=== PATIENT | female | born 1965 | race Hispanic/Latino ===

== ENCOUNTER → 2018-05-03 | Day surgery (SDC) | payer BC ==
[~2018-05-03] MED LIST: FENTANYL CITRATE/PF 100MCG/2 ML INJ ONE; GLIPIZIDE5 MG PO; GLUCAGON FOR INJ 1 MG VIAL ONE; HYOSCYAMINE SULFATE 0.5 MG/ML AMP ONE; INSULIN REGULAR, HUMAN 100 UNIT/1 ML 3ML VIAL ONE; INVOKANA PO; LIDOCAINE HCL 2% LOCAL INJ 5 ML SDV VIAL INJ ONE; LOVASTATIN10 MG PO; METFORMIN HCL500 MG PO; MIDAZOLAM HCL 2 MG/2 ML VIAL ONE; PHENYLEPHRINE 0.1 MG/ML SYR ONE; PIOGLITAZONE30 MG PO; PROPOFOL IV EMULSION 10 MG/ML 50 ML VIAL ONE; TOUJEO SC; [UNRECOGNIZED DRUG - OTHER] PO
[2018-05-03 12:55] LABS: WBC,FECAL (FECAL LACTOFERRIN) NEGATIVE (NEGATIVE)
[2018-05-03 13:45] VITALS: BP 107/82
--- NOTE | 2018-05-03 14:52 | Operative Report ---
DATE OF PROCEDURE: May 03, 2018 REFERRING PHYSICIAN: Dr. Ronna Geronimo PROCEDURE PERFORMED: Colonoscopy with polypectomy. INDICATIONS FOR COLONOSCOPY: Colorectal cancer screening. History of bright red blood per rectum. MEDICATION: Patient was done under MAC. Please see anesthesiologist's note. PROCEDURE: With the patient in the left lateral decubitus position, the flexible fiberoptic Olympus colonoscope was inserted into the rectum with ease and advanced all the way to the cecum. Moderate to large amount of retained stools was noted throughout the colon. Ileocecal valve was intubated, and the scope was advanced into the terminal ileum. Biopsies were obtained. The scope was then withdrawn back into the colon and it was withdrawn slowly, and whatever was visualized of the mucosa overlying the ascending appeared to be within normal limits. Two polyps were hot biopsied from the transverse colon. In the descending, whatever was visualized of the mucosa appeared to be within normal limits. One polyp was snared and two polyps were hot biopsied from the sigmoid colon. The rectum appeared to be within normal limits. The scope was then retroflexed into the distal rectum, and small internal hemorrhoids were noted, none of which was actively bleeding. The scope was then straightened out. It was subsequently withdrawn. Patient tolerated the procedure well. IMPRESSION 1. Suboptimal to poor prep. 2. Transverse colon polyps times 2, hot biopsied. 3. Sigmoid colon polyps times 3, one snared and two hot biopsied. 4. Internal hemorrhoids, none actively bleeding. PLAN: Follow up histology. Patient will need a repeat colonoscopy after a better prep. Job#: [id number] cc:RONNA GERONIMO M.D.
[2018-05-04 14:29] LABS: C DIFFICILE TOXIN A&B AMP PROB NEGATIVE (NEGATIVE)
== END | disposition home or self-care (01) ==
LOC: ENDO 11:39
PROVIDERS: ATTEND Internal Medicine Gastroenterology
DX: K92.1 Melena (principal); K63.5 Polyp of colon; K64.8 Other hemorrhoids; E11.9 Type 2 diabetes mellitus without complications; Z01.810 Encounter for preprocedural cardiovascular examination; Z79.84 Long term (current) use of oral hypoglycemic drugs; Z68.30 Body mass index [BMI] 30.0-30.9, adult
CPT/HCPCS: 36415; 45384; 45385; 82948; 83630; 83993; 87045; 87177; 87328; 87493; 93005; J1610; J1980; J2001; J2250; 45380

== ENCOUNTER → 2018-05-31 | Day surgery (SDC) | payer BC ==
[~2018-05-31] MED LIST changes: -GLUCAGON FOR INJ 1 MG VIAL ONE; -HYOSCYAMINE SULFATE 0.5 MG/ML AMP ONE; +HYOSCYAMINE SULFATE 0.5 MG/ML INJ ONE; -INSULIN REGULAR, HUMAN 100 UNIT/1 ML 3ML VIAL ONE; -LIDOCAINE HCL 2% LOCAL INJ 5 ML SDV VIAL INJ ONE; +ONDANSETRON HCL INJ 2 MG/ML VIAL ONE; -PHENYLEPHRINE 0.1 MG/ML SYR ONE; +TOUJEO SQ
[2018-05-31 14:20] VITALS: BP 103/67
[2018-05-31 14:34] LABS: WBC,FECAL (FECAL LACTOFERRIN) NEGATIVE (NEGATIVE)
--- NOTE | 2018-05-31 18:01 | Operative Report ---
DATE OF PROCEDURE: May 31, 2018 REFERRING PHYSICIAN: Dr. Ronna Geronimo PROCEDURE PERFORMED: Colonoscopy and polypectomy with biopsies. INDICATIONS FOR PROCEDURE: Poor prep on previous colonoscopy. History of colon polyps. MEDICATION: Patient was done under MAC. Please see anesthesiologist's note. PROCEDURE: With the patient in the left lateral decubitus position, the flexible fiberoptic Olympus colonoscope was inserted into the rectum with ease and advanced all the way to the cecum. Mucosa overlying the cecum appeared to be within normal limits. One polyp was snared from the ascending colon. One polyp was hot biopsied from the transverse colon. One polyp was snared from the descending colon. One polyp was hot biopsied from the sigmoid colon. The left colon revealed some patchy, mild, inflammatory changes, and random biopsies were obtained. The scope was then retroflexed into the distal rectum, and small internal hemorrhoids were noted, none of which was actively bleeding. The scope was then straightened out. It was subsequently withdrawn after securing an adequate stool specimen that was sent for the appropriate stool studies. Patient tolerated the procedure well. IMPRESSION 1. Ascending colon polyp, snared. 2. Transverse colon polyp, hot biopsied. 3. Descending colon polyp, snared. 4. Sigmoid colon polyp, hot biopsied. 5. Patchy, mild, left-sided colitis, random biopsies obtained. 6. Internal hemorrhoids, none actively bleeding. PLAN: Follow up histology. Follow up stool studies. Initiate Bentyl 10 mg 1 p.o. t.i.d. and VSL #3 one p.o. daily. The patient will need a followup colonoscopy in 3 years. Job#: [id number] cc:RONNA GERONIMO M.D.
[2018-06-01 14:56] LABS: C DIFFICILE TOXIN A&B AMP PROB NEGATIVE (NEGATIVE)
== END | disposition home or self-care (01) ==
LOC: ENDO 08:46
PROVIDERS: ATTEND Internal Medicine Gastroenterology
DX: Z09 Encounter for follow-up examination after completed treatment for conditions other than malignant neoplasm (principal); K63.5 Polyp of colon; K51.50 Left sided colitis without complications; K64.8 Other hemorrhoids; E11.9 Type 2 diabetes mellitus without complications; Z91.19 Patient's noncompliance with other medical treatment and regimen; Z01.810 Encounter for preprocedural cardiovascular examination; Z79.84 Long term (current) use of oral hypoglycemic drugs; Z68.31 Body mass index [BMI] 31.0-31.9, adult
CPT/HCPCS: 36415; 45380; 45384; 45385; 82948; 83630; 83993; 87045; 87177; 87328; 87493; 93005; J1980; J2250; J2405

== ENCOUNTER 2018-07-28 16:27 | Emergency (ER) | payer BC ==
[~2018-07-28] VITALS: Ht 157.5 cm; Wt 70.3 kg
[~2018-07-28 16:27] MED LIST changes: -FENTANYL CITRATE/PF 100MCG/2 ML INJ ONE; -HYOSCYAMINE SULFATE 0.5 MG/ML INJ ONE; -MIDAZOLAM HCL 2 MG/2 ML VIAL ONE; -ONDANSETRON HCL INJ 2 MG/ML VIAL ONE; -PROPOFOL IV EMULSION 10 MG/ML 50 ML VIAL ONE
[2018-07-28] MEDS ORDERED: SODIUM CHLORIDE 0.9% 1000ML 1,000 ML IV STA (17:22)
[2018-07-28] MEDS ORDERED: ONDANSETRON HCL INJ 2 MG/ML VIAL IV ONE (17:45)
[2018-07-28 18:49] LABS: CLARITY,URINE CLEAR (CLEAR); COLOR,URINE YELLOW (YELLOW); LEUKOCYTE ESTERASE ,URINE NEGATIVE (NEGATIVE); NITRITE,URINE NEGATIVE (NEGATIVE); PROTEIN,URINE DIPSTICK NEGATIVE (NEGATIVE)
[2018-07-28 18:50] LABS: BILIRUBIN,URINE NEGATIVE (NEGATIVE); KETONES,URINE NEGATIVE (NEGATIVE); URINE UROBILINOGEN 0.2 mg/dL (0.2 - 1)
[2018-07-28 19:02] LABS: BACTERIA,URINE FEW /HPF; CALCIUM OXALATE CRYSTALS,UR FEW (FEW); EPITHELIAL CELLS,URINE RARE /LPF
[2018-07-28 19:38] LABS: BASOPHILS # (AUTO) 0.1 (0.0-0.1); BASOPHILS % 0.5 % (0.0-1.0); EOSINOPHILS # (AUTO) 0.2 (0.0-0.4); EOSINOPHILS % 1.7 % (0.0-6.0); HEMATOCRIT 43.9 % (34.2-44.1); HEMOGLOBIN 14.3 g/dL (12.0-16.0); LYMPHOCYTES # (AUTO) 4.2 (1.0-3.2); LYMPHOCYTES % 30.4 % (18.0-39.1); MEAN CORPUSCULAR HEMOGLOBIN 28.7 pg (28-32); MEAN CORPUSCULAR HGB CONC 32.6 g/dL (31-35); MONOCYTES # (AUTO) 1.1 (0.2-0.8); MONOCYTES % 7.9 % (4.4-11.3); NEUTROPHILS # (AUTO) 8.2 (2.1-6.9); PLATELET COUNT 298 x10e3/uL (140-360); RED BLOOD COUNT 4.99 x10e6/uL (3.6-5.1); RED CELL DISTRIBUTION WIDTH 12.8 % (11.7-14.4)
[2018-07-28 20:58] LABS: ALANINE AMINOTRANSFERASE 33 IU/L (0-55); ALBUMIN 4.5 g/dL (3.5-5.0); ALBUMIN/GLOBULIN RATIO 1.1 (0.8-2.0); ALKALINE PHOSPHATASE 91 IU/L (40-150); ANION GAP 16.8 mmol/L (8-16); BLOOD UREA NITROGEN 11 mg/dL (7-26); BUN/CREATININE RATIO 11 (6-25); CALCIUM 10.7 mg/dL (8.4-10.2); CARBON DIOXIDE 24 mmol/L (22-29); CHLORIDE 101 mmol/L (98-107); CREATININE, SERUM 0.96 mg/dL (0.57-1.11); EST GLOMERULAR FILTRATION RATE > 60 ML/MIN (60-); GLUCOSE 166 mg/dL (74-118); LIPASE 26 U/L (8-78); POTASSIUM 3.8 mmol/L (3.5-5.1); SODIUM 138 mmol/L (136-145)
--- NOTE | 2018-07-28 22:26 | Diagnostic Imaging Report ---
EXAM: CT ABDOMEN AND PELVIS with IV CONTRAST DATE: 07/28/2018 5:22 PM Time stamp on Exam: 2206 hours INDICATION: Left upper and lower abdominal pain COMPARISON: None TECHNIQUE: The abdomen and pelvis were scanned using a multidetector helical scanner. Coronal and sagittal reformations were obtained. Dose modulation, iterative reconstruction, and/or weight based adjustment of the mA/kV was utilized to reduce the radiation dose to as low as reasonably achievable. Routine protocol performed. IV Contrast: 100 cc Isovue-370 Oral Contrast: Gastrografin FINDINGS: LOWER THORAX: No consolidations LIVER: No masses BILIARY: The gallbladder is unremarkable. No ductal dilation. SPLEEN: No masses PANCREAS: No masses ADRENALS: No nodules KIDNEYS: Symmetric perfusion. No enhancing masses. No hydronephrosis. GI TRACT: No distention, wall thickening or evidence of obstruction. VESSELS: Unremarkable PERITONEUM/RETROPERITONEUM: No free air or fluid LYMPH NODES: No lymphadenopathy REPRODUCTIVE ORGANS: The uterus has been removed. BLADDER: Unremarkable SOFT TISSUES: Unremarkable BONES: No suspicious bone lesions. IMPRESSION: Normal CT of the abdomen and pelvis. Signed by: Dr. Lu Quevedo M.D. on 07/28/2018 10:23 PM
[2018-07-29] MEDS ORDERED: SODIUM CHLORIDE 0.9% 50ML 50 ML ONE (04:32)
[2018-07-29] MEDS ORDERED: IOPAMIDOL 370 MG/ML 200 ML INFUS..BTL INJ ONE (04:33)
== END 2018-07-28 23:20 | disposition home or self-care (01) ==
LOC: ER 16:27
DX: R10.12 Left upper quadrant pain (principal); R11.2 Nausea with vomiting, unspecified; R19.7 Diarrhea, unspecified; E11.9 Type 2 diabetes mellitus without complications; E78.5 Hyperlipidemia, unspecified; Z87.19 Personal history of other diseases of the digestive system
CPT/HCPCS: 36415; 74177; 80053; 81001; 83605; 83690; 85025; 99284; J2405; J7030

== ENCOUNTER 2019-02-14 21:05 | Emergency (ER) | payer BC ==
[~2019-02-14] VITALS: Ht 157.5 cm; Wt 70.3 kg
--- OUTSIDE RECORDS SUMMARY | 2019-02-14 21:09 | XMS REPORT ---
[facility] Address Unknown Phone Unavailable Care Team Providers Care Needle Grader Name Role Phone Jackie TRACEY Unavailable Unavailable Problems This patient has no known problems. Allergies, Adverse Reactions, Alerts This patient has no known allergies or adverse reactions. Medications This patient has no known medications. Results Test Description Test Time Test Comments Text Results Atomic Results Result Comments CT ABDOMEN/PELVIS W 2018-07-28 22:16:00 [place] [address] Patient Name: TNOO ROSARIO MR #: [id number] : 1965 Age/Sex: 52/F Req #: [id number] Adm Physician: Ordered by: LANCE HARO LIVESTOCK FEEDER Report #: [id number] Location: ER Room/Bed: Procedure: [id number] CT/CT ABDOMEN/PELVIS W Exam Date: Exam Time: REPORT STATUS: Signed EXAM: CT ABDOMEN AND PELVIS with IV CONTRAST DATE: 07/28/2018 5:22 PM Time stamp on Exam: 2206 hours INDICATION: Left upper and lower abdominal pain COMPARISON: None TECHNIQUE: The abdomen and pelvis were scanned using a multidetector helical scanner. Coronal and sagittal reformations were obtained. Dose modulation, iterative reconstruction, and/or weight based adjustment of the mA/kV was utilized to reduce the radiation dose to as low as reasonably achievable. Routine protocol performed. IV Contrast: 100 cc Isovue-370 Oral Contrast: Gastrografin FINDINGS: LOWER THORAX: No consolidations LIVER: No masses BILIARY: The gallbladder is unremarkable. No ductal dilation. SPLEEN: No masses PANCREAS: No masses ADRENALS: No nodules KIDNEYS: Symmetric perfusion. No enhancing masses. No hydronephrosis. GI TRACT: No distention, wall thickening or evidence of obstruction. VESSELS: Unremarkable PERITONEUM/RETROPERITONEUM: No free air or fluid LYMPH NODES: No lymphadenopathy REPRODUCTIVE ORGANS: Th e uterus has been removed. BLADDER: Unremarkable SOFT TISSUES: Unremarkable BONES: No suspicious bone lesions. IMPRESSION: Normal CT of the abdomen and pelvis. Signed by: Dr. Zeyad Quevedo M.D. on 07/28/2018 10:23 PM Dictated By: ZEYAD QUEVEDO MD 22 Transcribed By: EMRLINE on 07/28/182222 COPY TO: LANCE HARO NP
[2019-02-14 21:38] LABS: BASOPHILS # (AUTO) 0.1 (0.0-0.1); BASOPHILS % 0.6 % (0.0-1.0); EOSINOPHILS # (AUTO) 0.2 (0.0-0.4); EOSINOPHILS % 1.5 % (0.0-6.0); HEMATOCRIT 39.5 % (34.2-44.1); HEMOGLOBIN 12.9 g/dL (12.0-16.0); LYMPHOCYTES % 31.7 % (18.0-39.1); MEAN CORPUSCULAR HEMOGLOBIN 28.7 pg (28-32); MEAN CORPUSCULAR HGB CONC 32.7 g/dL (31-35); MONOCYTES # (AUTO) 0.9 (0.2-0.8); MONOCYTES % 7.3 % (4.4-11.3); NEUTROPHILS # (AUTO) 7.4 (2.1-6.9); NEUTROPHILS % 58.6 % (38.7-80.0); PLATELET COUNT 303 x10e3/uL (140-360); RED BLOOD COUNT 4.49 x10e6/uL (3.6-5.1); RED CELL DISTRIBUTION WIDTH 13.1 % (11.7-14.4)
[2019-02-14 21:41] LABS: BILIRUBIN,URINE NEGATIVE (NEGATIVE); CLARITY,URINE CLEAR (CLEAR); COLOR,URINE YELLOW (YELLOW); KETONES,URINE TRACE (NEGATIVE); LEUKOCYTE ESTERASE ,URINE NEGATIVE (NEGATIVE); NITRITE,URINE NEGATIVE (NEGATIVE); PROTEIN,URINE DIPSTICK NEGATIVE (NEGATIVE); URINE UROBILINOGEN 0.2 mg/dL (0.2 - 1)
[2019-02-14 21:46] LABS: BACTERIA,URINE MODERATE /HPF; EPITHELIAL CELLS,URINE MANY /LPF; WBC,URINE (MAN) 0-5 /HPF (0-5)
[2019-02-14 21:52] LABS: ALANINE AMINOTRANSFERASE 30 IU/L (0-55); ALBUMIN 3.9 g/dL (3.5-5.0); ALBUMIN/GLOBULIN RATIO 1.1 (0.8-2.0); ALKALINE PHOSPHATASE 75 IU/L (40-150); ANION GAP 14.7 mmol/L (8-16); BLOOD UREA NITROGEN 10 mg/dL (7-26); BUN/CREATININE RATIO 13 (6-25); CALCIUM 9.2 mg/dL (8.4-10.2); CARBON DIOXIDE 25 mmol/L (22-29); CHLORIDE 101 mmol/L (98-107); EST GLOMERULAR FILTRATION RATE > 60 ML/MIN (60-); GLUCOSE 261 mg/dL (74-118); POTASSIUM 3.7 mmol/L (3.5-5.1); SODIUM 137 mmol/L (136-145)
--- NOTE | 2019-02-14 22:16 | NUR ---
attempted to contact dr bourne. pt states that sent by md to er. spoke to tad at answering service, states that unable to reach. tad states that contacted operations officer afloat, operations officer afloat unaware of why patient sent to er.
--- NOTE | 2019-02-14 22:20 | NUR ---
rc'd call from grants officer. cyber workforce developer and manager states that this is not his patient. clarified with name of md tai patient. pt sent by dr simone bourne md paged at this time.
--- NOTE | 2019-02-14 22:27 | NUR ---
attempted to reach dr bourne x 2. unable to reach. left voice message.
[2019-02-14 22:50] VITALS: BP 106/59
--- NOTE | 2019-02-14 22:57 | NUR ---
no return call rc'd from dr bourne at [phone]. informed. pt to be discharged with instructions to follow-up with dr bourne. copy of lab results provided.
== END 2019-02-14 23:04 | disposition home or self-care (01) ==
LOC: ER 21:05
DX: R10.32 Left lower quadrant pain (principal); R10.84 Generalized abdominal pain; K52.9 Noninfective gastroenteritis and colitis, unspecified
CPT/HCPCS: 36415; 80053; 81001; 85025; 99283

== ENCOUNTER 2019-02-15 15:03 | Inpatient (IN) | payer BC ==
[~2019-02-15] VITALS: Ht 152.4 cm; Wt 70.3 kg
[2019-02-15 15:50] VITALS: BP 118/67
[2019-02-15 16:07] VITALS: BP 118/67
[2019-02-15 16:36] VITALS: BP 118/67
[2019-02-15 17:26] LABS: BILIRUBIN,URINE NEGATIVE (NEGATIVE); CLARITY,URINE CLEAR (CLEAR); COLOR,URINE YELLOW (YELLOW); KETONES,URINE NEGATIVE (NEGATIVE); LEUKOCYTE ESTERASE ,URINE NEGATIVE (NEGATIVE); NITRITE,URINE NEGATIVE (NEGATIVE); PROTEIN,URINE DIPSTICK NEGATIVE (NEGATIVE); URINE UROBILINOGEN 0.2 mg/dL (0.2 - 1)
[2019-02-15 17:38] LABS: BACTERIA,URINE MANY /HPF; EPITHELIAL CELLS,URINE MODERATE /LPF
[2019-02-15] MEDS ORDERED: ONDANSETRON HCL INJ 2MG/ML 2ML 2 MG/ML VIAL IV PRN (18:30)
[2019-02-15] MEDS ORDERED: DEXTROSE 50% SYRINGE 50 ML IV PRN (18:30)
[2019-02-15] MEDS ORDERED: ACETAMINOPHEN 325 MG TAB PO PRN (18:30)
[2019-02-15] MEDS ORDERED: HYDRALAZINE HCL 20 MG/ML VIAL IV PRN (18:30)
--- NOTE | 2019-02-15 19:50 | Diagnostic Imaging Report ---
CT Abdomen and Pelvis without contrast INDICATION: Left flank pain for several days TECHNIQUE: Thin collimation axial images obtained from the diaphragm to the level of the pubic symphysis without nonionic intravenous contrast. Dose reduction techniques used: Automated exposure control, adjustment of the mAs and/or kVp according to patient size, standardized low-dose protocol, and/or iterative reconstruction technique. RADIATION DOSE: Total DLP: 466.79 mGy*cm Estimated effective dose: (DLP x 0.015 x size factor) mSv CTDIvol has been reviewed. It is below the limits set by the Radiation Protocol Committee (RPC). COMPARISON: CT abdomen/pelvis 07/28/2018. ABDOMEN FINDINGS: Lung Bases: Mild eventration of the right diaphragm is stable. There is mild bibasilar atelectasis. Visualized portion of the mediastinum is normal. Liver: Steatosis. Mild hepatomegaly. No mass. Gallbladder: Present and appears normal. No ductal dilatation. Pancreas: Normal attenuation without mass. Spleen: Normal size without mass. Adrenal Glands: No evidence for mass. Kidneys: Right: Mild fullness of the right renal collecting system. No calculus. No perinephric inflammation. No cortical mass Left: No renal calculus. No cortical mass or hydronephrosis Lymph Nodes: No enlarged abdominal or periaortic lymph nodes. Aorta: Normal in diameter PELVIS FINDINGS: Bowel: Stomach: Normal. Small Bowel: Normal in caliber with normal wall thickness. Large Bowel: Mild to moderate burden of stool throughout. No mural thickening or pericolonic inflammation. There are surgical clips at the base of the cecum. Appendix: Absent. Bladder: Well distended and is normal. Ureters: No distention or calculus in either ureter. The uterus is absent. No adnexal mass. Peritoneum/retroperitoneum: No free fluid or fluid collection. Bones: Stable bone island in the left femoral head. Soft tissues: Unremarkable. IMPRESSION: 1. Mild prominence of the right renal collecting system without evidence of ureteral calculus or perinephric inflammation. No evidence of calculus in or hydronephrosis of the left kidney. 2. No evidence for bowel obstruction or inflammation. 3. Steatosis and hepatomegaly. Signed by: Dr. Pete Marks MD on 02/15/2019 7:46 PM
[2019-02-15 20:00] VITALS: BP 126/58
[2019-02-15] MEDS ORDERED: VANCOMYCIN 1GM/NS 250 ML 250 ML IV ONE (20:00)
[2019-02-15 20:03] LABS: BASOPHILS # (AUTO) 0.1 (0.0-0.1); BASOPHILS % 0.6 % (0.0-1.0); EOSINOPHILS # (AUTO) 0.2 (0.0-0.4); EOSINOPHILS % 1.6 % (0.0-6.0); HEMATOCRIT 39.9 % (34.2-44.1); HEMOGLOBIN 13.1 g/dL (12.0-16.0); LYMPHOCYTES # (AUTO) 4.3 (1.0-3.2); LYMPHOCYTES % 33.4 % (18.0-39.1); MEAN CORPUSCULAR HGB CONC 32.8 g/dL (31-35); MEAN CORPUSCULAR VOLUME 88.5 fL (81-99); MONOCYTES # (AUTO) 0.8 (0.2-0.8); NEUTROPHILS # (AUTO) 7.4 (2.1-6.9); PLATELET COUNT 310 x10e3/uL (140-360); RED BLOOD COUNT 4.51 x10e6/uL (3.6-5.1)
[2019-02-15 20:20] LABS: BLOOD UREA NITROGEN 8 mg/dL (7-26); BUN/CREATININE RATIO 11 (6-25); CALCIUM 9.6 mg/dL (8.4-10.2); CARBON DIOXIDE 23 mmol/L (22-29); CHLORIDE 100 mmol/L (98-107); CREATININE, SERUM 0.72 mg/dL (0.57-1.11); EST GLOMERULAR FILTRATION RATE > 60 ML/MIN (60-); GLUCOSE 199 mg/dL (74-118); SODIUM 134 mmol/L (136-145)
[2019-02-15 20:35] VITALS: BP 126/58
[2019-02-15] MEDS ORDERED: SODIUM CHLORIDE 0.9% 250ML 250 ML ONE (20:48)
[2019-02-15] MEDS: INSULIN LISPRO 100 UNIT/1 ML 3ML VIAL SQ SCH (21:00)
[2019-02-15] MEDS: SIMVASTATIN 20 MG TAB PO SCH (21:00)
[2019-02-16] VITALS (8 sets, daily range): BP systolic 95–116; BP diastolic 58–65
[2019-02-16 03:28] LABS: BASOPHILS # (AUTO) 0.1 (0.0-0.1); BASOPHILS % 0.5 % (0.0-1.0); EOSINOPHILS # (AUTO) 0.1 (0.0-0.4); EOSINOPHILS % 1.3 % (0.0-6.0); HEMATOCRIT 39.2 % (34.2-44.1); HEMOGLOBIN 12.7 g/dL (12.0-16.0); LYMPHOCYTES # (AUTO) 3.3 (1.0-3.2); LYMPHOCYTES % 30.9 % (18.0-39.1); MEAN CORPUSCULAR HEMOGLOBIN 28.4 pg (28-32); MEAN CORPUSCULAR HGB CONC 32.4 g/dL (31-35); MEAN CORPUSCULAR VOLUME 87.7 fL (81-99); MONOCYTES # (AUTO) 0.9 (0.2-0.8); MONOCYTES % 8.3 % (4.4-11.3); NEUTROPHILS # (AUTO) 6.2 (2.1-6.9); NEUTROPHILS % 58.5 % (38.7-80.0); PLATELET COUNT 276 x10e3/uL (140-360); RED BLOOD COUNT 4.47 x10e6/uL (3.6-5.1); RED CELL DISTRIBUTION WIDTH 13.1 % (11.7-14.4)
[2019-02-16 03:49] LABS: ANION GAP 13.7 mmol/L (8-16); BLOOD UREA NITROGEN 8 mg/dL (7-26); BUN/CREATININE RATIO 12 (6-25); CALCIUM 9.1 mg/dL (8.4-10.2); CARBON DIOXIDE 23 mmol/L (22-29); CHLORIDE 108 mmol/L (98-107); CREATININE, SERUM 0.66 mg/dL (0.57-1.11); EST GLOMERULAR FILTRATION RATE > 60 ML/MIN (60-); GLUCOSE 105 mg/dL (74-118); POTASSIUM 3.7 mmol/L (3.5-5.1); SODIUM 141 mmol/L (136-145)
[2019-02-16] MEDS: INSULIN LISPRO 100 UNIT/1 ML 3ML VIAL SQ SCH ×4 (08:13→21:00)
[2019-02-16] MEDS: ACETAMINOPHEN/CODEINE 300MG - 30MG TAB PO PRN ×2 (08:13→16:10)
[2019-02-16] MEDS: GLIPIZIDE 5 MG TAB PO SCH ×2 (08:14→16:10)
[2019-02-16] MEDS ORDERED: NON-FORMULARY MEDICATION (Lovastatin 10 MG) PO SCH (09:00)
[2019-02-16] MEDS ORDERED: TOUJEO 30 UNIT SC SCH (09:00)
[2019-02-16] MEDS ORDERED: ONDANSETRON HCL 4 MG ORAL DISINTEGRATING TAB PO PRN (10:30)
[2019-02-16] MEDS: TOUJEO 30 UNIT SC SCH (21:00)
[2019-02-16] MEDS: SIMVASTATIN 20 MG TAB PO SCH (21:15)
[2019-02-17] VITALS (8 sets, daily range): BP systolic 103–115; BP diastolic 56–80
[2019-02-17 03:16] LABS: BASOPHILS # (AUTO) 0.1 (0.0-0.1); BASOPHILS % 0.7 % (0.0-1.0); EOSINOPHILS # (AUTO) 0.2 (0.0-0.4); HEMATOCRIT 39.4 % (34.2-44.1); HEMOGLOBIN 12.6 g/dL (12.0-16.0); LYMPHOCYTES # (AUTO) 3.5 (1.0-3.2); LYMPHOCYTES % 39.3 % (18.0-39.1); MEAN CORPUSCULAR HEMOGLOBIN 28.6 pg (28-32); MEAN CORPUSCULAR VOLUME 89.3 fL (81-99); MONOCYTES # (AUTO) 0.7 (0.2-0.8); MONOCYTES % 7.6 % (4.4-11.3); NEUTROPHILS # (AUTO) 4.5 (2.1-6.9); NEUTROPHILS % 50.1 % (38.7-80.0); PLATELET COUNT 255 x10e3/uL (140-360); RED BLOOD COUNT 4.41 x10e6/uL (3.6-5.1)
[2019-02-17 03:31] LABS: ANION GAP 13.7 mmol/L (8-16); BLOOD UREA NITROGEN 9 mg/dL (7-26); BUN/CREATININE RATIO 13 (6-25); CALCIUM 8.8 mg/dL (8.4-10.2); CARBON DIOXIDE 24 mmol/L (22-29); CHLORIDE 106 mmol/L (98-107); CREATININE, SERUM 0.68 mg/dL (0.57-1.11); EST GLOMERULAR FILTRATION RATE > 60 ML/MIN (60-); GLUCOSE 110 mg/dL (74-118); POTASSIUM 3.7 mmol/L (3.5-5.1); SODIUM 140 mmol/L (136-145)
[2019-02-17 03:54] LABS: FREE T4 (FREE THYROXINE) 0.93 ng/dL (0.8-1.8); THYROID STIMULATING HORMONE 1.665 uIU/mL (0.350-4.940)
[2019-02-17] MEDS: PANTOPRAZOLE SOD 40 MG TABEC PO SCH ×2 (06:27→08:16)
[2019-02-17] MEDS: VANCOMYCIN 1GM/NS 250 ML 250 ML IV SCH (06:47)
[2019-02-17] MEDS: GLIPIZIDE 5 MG TAB PO SCH ×2 (07:30→16:23)
[2019-02-17] MEDS: INSULIN LISPRO 100 UNIT/1 ML 3ML VIAL SQ SCH ×4 (08:16→20:43)
[2019-02-17] MEDS: SIMVASTATIN 20 MG TAB PO SCH (20:38)
[2019-02-17] MEDS: TOUJEO 30 UNIT SC SCH (20:39)
[2019-02-18] VITALS: BP 121/60
[2019-02-18 03:51] LABS: BASOPHILS # (AUTO) 0.1 (0.0-0.1); BASOPHILS % 0.5 % (0.0-1.0); EOSINOPHILS # (AUTO) 0.2 (0.0-0.4); EOSINOPHILS % 2.1 % (0.0-6.0); HEMATOCRIT 39.4 % (34.2-44.1); HEMOGLOBIN 12.8 g/dL (12.0-16.0); LYMPHOCYTES # (AUTO) 3.4 (1.0-3.2); LYMPHOCYTES % 35.1 % (18.0-39.1); MEAN CORPUSCULAR HEMOGLOBIN 28.5 pg (28-32); MEAN CORPUSCULAR HGB CONC 32.5 g/dL (31-35); MEAN CORPUSCULAR VOLUME 87.8 fL (81-99); MONOCYTES # (AUTO) 0.8 (0.2-0.8); NEUTROPHILS # (AUTO) 5.2 (2.1-6.9); NEUTROPHILS % 53.9 % (38.7-80.0); PLATELET COUNT 264 x10e3/uL (140-360); RED BLOOD COUNT 4.49 x10e6/uL (3.6-5.1); RED CELL DISTRIBUTION WIDTH 12.9 % (11.7-14.4)
[2019-02-18 04:00] VITALS: BP 97/54
[2019-02-18 04:05] LABS: ANION GAP 13.9 mmol/L (8-16); BLOOD UREA NITROGEN 11 mg/dL (7-26); BUN/CREATININE RATIO 13 (6-25); CALCIUM 9.2 mg/dL (8.4-10.2); CARBON DIOXIDE 23 mmol/L (22-29); CHLORIDE 106 mmol/L (98-107); CREATININE, SERUM 0.82 mg/dL (0.57-1.11); EST GLOMERULAR FILTRATION RATE > 60 ML/MIN (60-); GLUCOSE 211 mg/dL (74-118); POTASSIUM 3.9 mmol/L (3.5-5.1); SODIUM 139 mmol/L (136-145)
[2019-02-18] MEDS: VANCOMYCIN 1GM/NS 250 ML 250 ML IV SCH (06:30)
[2019-02-18] MEDS: INSULIN LISPRO 100 UNIT/1 ML 3ML VIAL SQ SCH ×2 (07:30→11:30)
[2019-02-18 07:49] VITALS: BP 112/56
[2019-02-18] MEDS: GLIPIZIDE 5 MG TAB PO SCH (08:36)
[2019-02-18] MEDS: PANTOPRAZOLE SOD 40 MG TABEC PO SCH (08:36)
[2019-02-18 09:00] VITALS: BP 112/56
[2019-02-18] MEDS ORDERED: CEFDINIR300 MG PO (10:31)
[2019-02-18 11:34] VITALS: BP 152/72
--- NOTE | 2019-02-19 00:44 | Discharge Summary ---
ADMISSION DIAGNOSES: Urinary tract infection present on admission with failed outpatient treatment, left flank pain, hyperlipidemia, type 2 diabetes. DISCHARGE DIAGNOSES: Urinary tract infection present on admission with failed outpatient treatment, left flank pain, hyperlipidemia, type 2 diabetes, streptococcus viridans, urinary tract infection, rule out Clostridium difficile, rule out gastrointestinal bleed. HISTORY: The patient has a history of type 2 diabetes and hyperlipidemia. SURGICAL HISTORY: Appendectomy, hysterectomy, left oophorectomy. FAMILY HISTORY: The patient's dad, sister, brother and grandma had diabetes. The patient's aunt and cousin had a stroke. SOCIAL HISTORY: Noncontributory. HOSPITAL COURSE: A 53-year-old female began having left flank pain with nausea, vomiting, and diarrhea that began 3 weeks ago while in [facility]. She went to the hospital and left AMA, but got a prescription for Cipro. The nausea, vomiting, diarrhea resolved, but dysuria and pain continued, so she went to her primary care doctor and got a prescription for Levaquin. At that point, the urine culture came back positive for Enterococcus. Symptoms remained despite the two antibiotics, so the patient was sent to the ER. On admission, the patient was began on vancomycin. CT of the abdomen showed mild prominence of the right renal collecting system without evidence of calculus or perinephric inflammation. No hydronephrosis of the left kidney or calculus of the left kidney. No bowel obstruction or inflammation. Stool for blood was negative. Clostridium difficile was negative. Blood cultures were negative. Urine culture came back positive for Streptococcus viridans. Ova and parasite screen is still pending at time of discharge. Clostridium difficile is negative. The patient said her left flank pain is gone and she is no longer having diarrhea. She will be discharged home with [facility] for five days and continued her home medicine. She will follow up with primary care in 1 to 2 weeks. The patient understands discharge instructions and agrees to plan. Vital signs stable. The patient afebrile. Dictated by Sagrario Castro NP MD JUAQUIN Avitia/JOSEPH /[id number]
== END 2019-02-18 13:13 | disposition home or self-care (01) | DRG 690 ==
LOC: PACU V 15:24 → MED/SURG3 15:42
PROVIDERS: ADMIT Internal Medicine; ATTEND Internal Medicine
DX: N39.0 Urinary tract infection, site not specified (principal); E78.5 Hyperlipidemia, unspecified; Z79.4 Long term (current) use of insulin; B95.4 Other streptococcus as the cause of diseases classified elsewhere
CPT/HCPCS: 36415; 74176; 80048; 81001; 82270; 82948; 83036; 83630; 83690; 84439; 84443; 85025; 87040; 87045; 87086; 87177; 87328; 87493; J3370; J7050

== ENCOUNTER → 2021-07-29 | Day surgery (SDC) | payer BC ==
[~2021-07-29] MED LIST changes: +CEFDINIR300 MG PO; +FENTANYL CITRATE/PF 100MCG/2 ML INJ ONE; +GLUCAGON FOR INJ 1 MG VIAL ONE; +HYOSCYAMINE SULFATE 0.5 MG/ML INJ ONE; +LIDOCAINE HCL 2% LOCAL INJ 5 ML SDV VIAL INJ ONE; +METOCLOPRAMIDE HCL 10 MG/2ML VIAL ONE; +MIDAZOLAM HCL 2 MG/2 ML VIAL ONE; +ONDANSETRON HCL 4 MG ORAL DISINTEGRATING TAB ONE; +PROPOFOL IV EMULSION 10 MG/ML 20 ML VIAL ONE
[2021-07-29 09:20] VITALS: BP 122/88
[2021-07-29 11:31] LABS: WBC,FECAL (FECAL LACTOFERRIN) NEGATIVE (NEGATIVE)
[2021-07-29 13:56] LABS: C DIFFICILE TOXIN A&B AMP PROB NEGATIVE (NEGATIVE)
== END | disposition home or self-care (01) ==
LOC: OR 05:42
PROVIDERS: ATTEND Internal Medicine Gastroenterology
DX: K29.70 Gastritis, unspecified, without bleeding (principal); K63.5 Polyp of colon; K20.90 Esophagitis, unspecified without bleeding; K63.89 Other specified diseases of intestine; K57.30 Diverticulosis of large intestine without perforation or abscess without bleeding; K64.8 Other hemorrhoids; D72.820 Lymphocytosis (symptomatic); G47.33 Obstructive sleep apnea (adult) (pediatric); E11.9 Type 2 diabetes mellitus without complications; E78.5 Hyperlipidemia, unspecified; Z01.810 Encounter for preprocedural cardiovascular examination; Z01.812 Encounter for preprocedural laboratory examination; Z20.822 Contact with and (suspected) exposure to COVID-19; Z79.4 Long term (current) use of insulin; Z79.899 Other long term (current) drug therapy; Z68.30 Body mass index [BMI] 30.0-30.9, adult; Z86.73 Personal history of transient ischemic attack (TIA), and cerebral infarction without residual deficits
CPT/HCPCS: 36415; 43239; 45380; 82948; 83630; 83993; 87045; 87177; 87328; 87493; 93005; C9113; J1610; J1980; J2001; J2250; J2704; J2765; J3010; Q0162; U0002; 45378; 45385

== ENCOUNTER → 2022-12-19 | Outpatient (CLI) | payer BC ==
[~2022-12-19] MED LIST changes: -FENTANYL CITRATE/PF 100MCG/2 ML INJ ONE; -GLUCAGON FOR INJ 1 MG VIAL ONE; -HYOSCYAMINE SULFATE 0.5 MG/ML INJ ONE; -LIDOCAINE HCL 2% LOCAL INJ 5 ML SDV VIAL INJ ONE; -METOCLOPRAMIDE HCL 10 MG/2ML VIAL ONE; -MIDAZOLAM HCL 2 MG/2 ML VIAL ONE; -ONDANSETRON HCL 4 MG ORAL DISINTEGRATING TAB ONE; -PROPOFOL IV EMULSION 10 MG/ML 20 ML VIAL ONE
== END ==
LOC: US 10:17
PROVIDERS: ATTEND Student in an Organized Health Care Education/Training Program
DX: R59.1 Generalized enlarged lymph nodes (principal)
CPT/HCPCS: 76536

== ENCOUNTER → 2022-12-30 | Outpatient (CLI) | payer BC ==
[~2022-12-30] MED LIST changes: +GADOBENATE DIMEGLUMINE 1 ML IV ONE; +LORAZEPAM INJ 2 MG/ML VIAL ONE
[2022-12-30 13:05] LABS: CREATININE, SERUM 0.71 mg/dL (0.57-1.11)
== END ==
LOC: MRI 11:56
PROVIDERS: ATTEND Student in an Organized Health Care Education/Training Program
DX: R59.1 Generalized enlarged lymph nodes (principal)
CPT/HCPCS: 36415; 72156; 82565; 84520; J2060

== ENCOUNTER → 2023-02-07 | Outpatient (CLI) | payer BC ==
[~2023-02-07] MED LIST changes: -GADOBENATE DIMEGLUMINE 1 ML IV ONE; +IOPAMIDOL 370 MG/ML 100 ML INFUS..BTL INJ ONE; -LORAZEPAM INJ 2 MG/ML VIAL ONE
[2023-02-07 12:19] LABS: CREATININE, SERUM 0.72 mg/dL (0.57-1.11)
== END ==
LOC: CT 11:32
PROVIDERS: ATTEND Internal Medicine Endocrinology, Diabetes & Metabolism
DX: E11.42 Type 2 diabetes mellitus with diabetic polyneuropathy (principal); K62.89 Other specified diseases of anus and rectum; R10.30 Lower abdominal pain, unspecified
CPT/HCPCS: 36415; 74177; 82565; 84520; Q9967

== ENCOUNTER 2023-08-08 13:51 | Emergency (ER) | payer BC ==
[~2023-08-08] VITALS: Ht 157.5 cm; Wt 70.3 kg
[~2023-08-08 13:51] MED LIST changes: -IOPAMIDOL 370 MG/ML 100 ML INFUS..BTL INJ ONE
[2023-08-08] MEDS ORDERED: KETOROLAC TROMETHAMINE 30 MG/ML VIAL IV STA (14:31)
[2023-08-08] MEDS ORDERED: ONDANSETRON HCL INJ 2MG/ML 2ML 2 MG/ML VIAL IV STA (14:31)
[2023-08-08] MEDS ORDERED: LACTATED RINGER'S 1,000 ML INJ ONE (14:45)
[2023-08-08 15:08] LABS: BASOPHILS # (AUTO) 0.1 (0.0-0.1); BASOPHILS % 0.3 % (0.0-1.0); EOSINOPHILS # (AUTO) 0.2 (0.0-0.4); EOSINOPHILS % 1.4 % (0.0-6.0); HEMATOCRIT 45.1 % (34.2-44.1); HEMOGLOBIN 14.5 g/dL (12.0-16.0); LYMPHOCYTES % 18.5 % (18.0-39.1); MEAN CORPUSCULAR HEMOGLOBIN 28.9 pg (28-32); MEAN CORPUSCULAR HGB CONC 32.2 g/dL (31-35); MONOCYTES # (AUTO) 1.1 (0.2-0.8); MONOCYTES % 6.9 % (4.4-11.3); NEUTROPHILS # (AUTO) 11.7 (2.1-6.9); NEUTROPHILS % 72.7 % (38.7-80.0); PLATELET COUNT 272 x10e3/uL (140-360); RED BLOOD COUNT 5.01 x10e6/uL (3.6-5.1); RED CELL DISTRIBUTION WIDTH 12.9 % (11.7-14.4); WHITE BLOOD COUNT 16.07 x10e3/uL (4.8-10.8)
[2023-08-08] MEDS: DICYCLOMINE HCL 20 MG/2 ML VIAL IM ONE ×2 (15:20→15:28)
[2023-08-08 15:22] LABS: INR 0.92; PROTHROMBIN TIME 12.5 seconds (11.9-14.5)
[2023-08-08 15:23] LABS: PARTIAL THROMBOPLASTIN TIME 27.3 seconds (23.8-35.5)
[2023-08-08 15:24] LABS: ALBUMIN 3.9 g/dL (3.5-5.0); ANION GAP 13.9 mmol/L (8-16); BILIRUBIN,TOTAL 0.4 mg/dL (0.2-1.2); CALCIUM 9.1 mg/dL (8.4-10.2); CREATININE, SERUM 0.84 mg/dL (0.57-1.11); POTASSIUM 3.9 mmol/L (3.5-5.1); TOTAL PROTEIN 7.7 g/dL (6.5-8.1)
[2023-08-08] MEDS ORDERED: IOPAMIDOL 370 MG/ML 100 ML INFUS..BTL INJ ONE (15:54)
[2023-08-08 17:36] LABS: CLARITY,URINE CLEAR (CLEAR); COLOR,URINE YELLOW (YELLOW); GLUCOSE, URINE 500 (NEGATIVE); KETONES,URINE 1+ (NEGATIVE); LEUKOCYTE ESTERASE ,URINE NEGATIVE (NEGATIVE); NITRITE,URINE NEGATIVE (NEGATIVE); PH,URINE 7.5 (5 - 7); PROTEIN,URINE DIPSTICK NEGATIVE (NEGATIVE)
[2023-08-08 17:37] LABS: BILIRUBIN,URINE NEGATIVE (NEGATIVE); URINE UROBILINOGEN 0.2 mg/dL (0.2 - 1)
[2023-08-08 17:46] LABS: BACTERIA,URINE RARE /HPF; EPITHELIAL CELLS,URINE FEW /LPF
[2023-08-08] MEDS ORDERED: DICYCLOMINE HCL20 MG PO (17:50)
[2023-08-08 18:14] VITALS: BP 117/78; PULSE 98; RESP 16; TEMP 98.8; O2SAT 100
== END 2023-08-08 18:11 | disposition home or self-care (01) ==
LOC: ER 13:55
DX: R10.32 Left lower quadrant pain (principal); E11.65 Type 2 diabetes mellitus with hyperglycemia; E78.5 Hyperlipidemia, unspecified; E78.00 Pure hypercholesterolemia, unspecified; Z87.19 Personal history of other diseases of the digestive system
CPT/HCPCS: 36415; 74177; 80053; 81001; 85025; 85610; 85730; 99284; J0500; J1885; J2405; J7121; Q9967

== ENCOUNTER 2024-04-28 13:34 | Emergency (ER) | payer BC ==
[~2024-04-28] VITALS: Ht 157.5 cm; Wt 70.3 kg
[~2024-04-28 13:34] MED LIST changes: +DICYCLOMINE HCL20 MG PO; +MOUNJARO5 MG/0.5 M SC
[2024-04-28 13:57] VITALS: PULSE 67; RESP 18; TEMP 98.1; O2SAT 100
[2024-04-28 14:35] LABS: BASOPHILS # (AUTO) 0.1 (0.0-0.1); BASOPHILS % 0.6 % (0.0-1.0); EOSINOPHILS # (AUTO) 0.1 (0.0-0.4); EOSINOPHILS % 1.5 % (0.0-6.0); HEMATOCRIT 44.5 % (34.2-44.1); HEMOGLOBIN 14.2 g/dL (12.0-16.0); LYMPHOCYTES # (AUTO) 3.1 (1.0-3.2); LYMPHOCYTES % 34.6 % (18.0-39.1); MEAN CORPUSCULAR HEMOGLOBIN 29.2 pg (28-32); MEAN CORPUSCULAR HGB CONC 31.9 g/dL (31-35); MEAN CORPUSCULAR VOLUME 91.6 fL (81-99); MONOCYTES # (AUTO) 0.7 (0.2-0.8); MONOCYTES % 7.9 % (4.4-11.3); NEUTROPHILS # (AUTO) 4.9 (2.1-6.9); NEUTROPHILS % 55.1 % (38.7-80.0); PLATELET COUNT 260 x10e3/uL (140-360); RED BLOOD COUNT 4.86 x10e6/uL (3.6-5.1); RED CELL DISTRIBUTION WIDTH 12.9 % (11.7-14.4); WHITE BLOOD COUNT 8.88 x10e3/uL (4.8-10.8)
[2024-04-28 14:47] LABS: ALBUMIN 4.1 g/dL (3.5-5.0); ALBUMIN/GLOBULIN RATIO 1.3 (0.8-2.0); ANION GAP 12.5 mmol/L (8-16); BILIRUBIN,TOTAL 0.4 mg/dL (0.2-1.2); CALCIUM 8.8 mg/dL (8.4-10.2); CREATININE, SERUM 0.75 mg/dL (0.57-1.11); POTASSIUM 3.5 mmol/L (3.5-5.1); TOTAL PROTEIN 7.3 g/dL (6.5-8.1)
[2024-04-28 14:55] LABS: BILIRUBIN,URINE NEGATIVE (NEGATIVE); CLARITY,URINE SL CLOUDY (CLEAR); COLOR,URINE YELLOW (YELLOW); GLUCOSE, URINE 500 (NEGATIVE); KETONES,URINE NEGATIVE (NEGATIVE); LEUKOCYTE ESTERASE ,URINE NEGATIVE (NEGATIVE); NITRITE,URINE NEGATIVE (NEGATIVE); PH,URINE 5.5 (5 - 7); PROTEIN,URINE DIPSTICK NEGATIVE (NEGATIVE); URINE UROBILINOGEN 0.2 mg/dL (0.2 - 1)
[2024-04-28 14:56] LABS: AMORPHOUS SEDIMENT,URINE MODERATE (FEW); BACTERIA,URINE RARE /HPF; EPITHELIAL CELLS,URINE MANY /LPF; WBC,URINE (MAN) 0-5 /HPF (0-5)
[2024-04-28] MEDS ORDERED: IOPAMIDOL 370 MG/ML 100 ML INFUS..BTL INJ ONE (14:56)
[2024-04-28] MEDS: SODIUM CHLORIDE 0.9% 1000ML 1,000 ML IV STA (15:02)
[2024-04-28] MEDS: ONDANSETRON HCL INJ 2MG/ML 2ML 2 MG/ML VIAL IV STA (15:02)
[2024-04-28] MEDS: DICYCLOMINE HCL 20 MG/2 ML VIAL IM ONE (15:03)
[2024-04-28] MEDS ORDERED: AMOX TR-K CLV1 EAC2 PO (16:17)
[2024-04-28] MEDS ORDERED: ONDANSETRON ODT4 MG PO (16:18)
== END 2024-04-28 16:33 | disposition home or self-care (01) ==
LOC: ER 13:54
DX: R10.32 Left lower quadrant pain (principal); K57.32 Diverticulitis of large intestine without perforation or abscess without bleeding; R11.2 Nausea with vomiting, unspecified; E78.5 Hyperlipidemia, unspecified; E78.00 Pure hypercholesterolemia, unspecified
CPT/HCPCS: 36415; 74177; 80053; 81001; 85025; 99284; J0500; J2405; J2470; J7030; Q9967

== ENCOUNTER → 2025-05-20 | Outpatient (REF) | payer BC ==
[~2025-05-20] MED LIST changes: +AMOX TR-K CLV1 EAC2 PO; +ONDANSETRON ODT4 MG PO
== END ==
LOC: US 12:04
PROVIDERS: ATTEND Internal Medicine Endocrinology, Diabetes & Metabolism
DX: R94.5 Abnormal results of liver function studies (principal)
CPT/HCPCS: 76700